=== PATIENT | male | born 1975 | race Caucasian/White ===

== ENCOUNTER 2020-08-25 21:52 | Observation (INO) ==
--- OUTSIDE RECORDS SUMMARY | 2020-08-25 21:55 | External Medical Summary | Continuity of Care Document ---
:1975 Author Name Blu To, Provider Address Unavailable Unavailable , Care Team Providers Name Role Phone Unavailable Unavailable Unavailable PCP, UNKNOWN Unavailable Unavailable Problems Active medical history not documented Allergies and Adverse Reactions Allergy history not documented Medications Medications not documented Procedures Procedures not documented Immunizations Immunizations not documented Plan of Treatment Planned Observations Planned Goals not documented Results No Known Results Results not documented
[2020-08-25] MEDS ORDERED: LORazepam 2 MG/4 ML VIAL IV STA (22:00)
[2020-08-25] MEDS ORDERED: SODIUM CHLORIDE 0.9% 1000ML 1,000 ML IV ONE (22:00)
[2020-08-25 22:34] LABS: Basophils # (auto) 0.06 K/uL (0-0.2); Basophils % (auto) 0.5 %; Eosinophils # (auto) 0.02 K/uL (0-0.5); Eosinophils % (auto) 0.2 %; Hematocrit (blood only) 54.9 % (42-52); Hemoglobin 19.4 g/dL (14.0-18.0); Immature Granulocytes # (auto) 0.03 K/uL (0.00-0.02); Immature Granulocytes % (auto) 0.3 %; Lymphocytes # (auto) 1.82 K/uL (1.2-3.4); Lymphocytes % (auto) 15.8 %; Mean Corpuscular Hemoglobin 36.1 pg (25-34); Mean Corpuscular Hgb Conc 35.3 g/dL (32-36); Monocytes # (auto) 0.89 K/uL (0.11-0.59); Monocytes % (auto) 7.7 %; Neutrophils # (auto) 8.67 K/uL (1.4-6.5); Neutrophils % (auto) 75.5 %; Platelet Count 358 K/uL (130-400); RDW Standard Deviation 52.5 fL (36.4-46.3); Red Blood Count 5.38 M/uL (4.7-6.1); White Blood Count 11.49 K/uL (4.8-10.8)
[2020-08-25 22:55] LABS: Alanine Aminotransferase 48 U/L (12-78); Albumin Level 2.9 gm/dl (3.4-5.0); Aspartate Aminotransferase 31 U/L (15-37); BUN Creatinine Ratio 2.4 (10-20); Bilirubin Direct < 0.1 mg/dl (0-0.2); Blood Urea Nitrogen 3 mg/dl (7-18); Calcium 8.7 mg/dl (8.5-10.1); Carbon Dioxide 24 mmol/L (21-32); Chloride 105 mmol/L (98-107); Creatinine Clr Calc Pharmacy 92.9 ml/min; Est GFR (African American) 98.7; Est GFR (Non-African American) 85.2; Glucose 119 mg/dl (70-99); Lipase 96 U/L (73-393); Magnesium 2.3 mg/dl (1.8-2.4); Potassium 3.5 mmol/L (3.5-5.1); Sodium 141 mmol/L (136-145)
[2020-08-25 22:58] LABS: Alkaline Phosphatase 135 U/L (45-117); Bilirubin,Total < 0.1 mg/dl (0.2-1); Total Protein 8.2 gm/dl (6.4-8.2)
[2020-08-25 23:11] LABS: Troponin I < 0.015 ng/ml (0-0.045)
--- NOTE | 2020-08-26 01:41 | CT Scan Report ---
CT head/brain wo con CLINICAL HISTORY: 44 years-old Male with ams. Acutely altered mental status TECHNIQUE: Multiple axial CT images of the head were obtained without contrast. A dose lowering tech nique was utilized adhering to the principles of ALARA. COMPARISON: CT cervical spine of same day. FINDINGS: No acute intracranial hemorrhage, midline shift, intracranial mass, hydrocephalus, territorial ischem ia or abnormal extra-axial collection. The calvarium is intact. Mild polypoid mucosal thickening of the maxillary sinuses. Angulation of th e nasal bones suggests remote fracture deformities. Mastoid air cells are clear. Soft tissues and orb its are unremarkable. IMPRESSION: No acute intracranial abnormality. ACT 112: Negative or not required by law. The above report was generated using voice recognition software. It may contain grammatical, syntax o r spelling errors. Electronically signed by: Marty Rodriguez M.D. 08/26/2020 1:39 AM
--- NOTE | 2020-08-26 01:48 | CT Scan Report ---
CT cervical spine wo con CT DOSE: 1025.18 mGy.cm CLINICAL HISTORY: 44 years-old Male with ams. Acute confusion with head and neck injury. COMPARISON: CT head of same day TECHNIQUE: Multiple axial CT images of the cervical spine were obtained without contrast. A dose low ering technique was utilized adhering to the principles of ALARA. FINDINGS: There is mild multilevel facet arthrosis and spondylitic spurring with severe degeneration at C1-C2. No acute fracture or subluxation. No prevertebral edema. Mastoid air cells and middle ear cavities ar e clear. No pneumothorax. Calcified plaque of the carotid bulbs. There is thickening of the visualize d maxillary sinuses, right greater than left. Secretions are noted within the airway. IMPRESSION: No acute fracture or subluxation. ACT 112: Negative or not required by law. The above report was generated using voice recognition software. It may contain grammatical, syntax o r spelling errors. Electronically signed by: Marty Rodriguez M.D. 08/26/2020 1:47 AM
--- NOTE | 2020-08-26 02:31 | Emergency Department Note ---
History of Present Illness General Chief complaint: Alcohol Intoxication Stated complaint: ALCOHOL INTOXICATION Time Seen by Provider: 08/25/20 21:57 Source: police History of Present Illness Provider complaint: Alcohol intoxication Onset (ago): day(s) 1 44-year-old male presents to the emergency department for alcohol intoxication. 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 manager of case reports that they received a call to go out to the patient's house to make sure he is okay for concerns of suicide. When they arrived the patient refused to let the police into his residence. Police were eventually able to gain access to the patient's residence and found him to be severely intoxicated. They state that he was covered in his own filth. Patient reports he has been drinking a half a gallon of alcohol a day. He currently denies any plans to want to hurt himself. Home Medications Home Medications Medication Instructions Recorded Confirmed Type No Known Home Medications 08/25/20 08/25/20 History Allergies Allergy/AdvReac Type Severity Reaction Status Date / Time Penicillins Allergy Severe rash, Verified 08/25/20 23:36 throat swelling Past Med/Surg History Medical History (Updated 08/26/20 @ 02:32 by Dieudonne Gipson) Amputation of left foot Gangrene No pertinent family history Social History (Updated 08/26/20 @ 02:28 by Dieudonne Gipson) Smoking Status: Current every day smoker Tobacco Type: Cigarettes Hx Alcohol Use: Yes Alcohol type: hard liquor Alcohol type Comment: Half a gallon a day Preferred Language: Sudanese Feels Safe at Home: Yes Review of Systems A total of 10 systems reviewed and were otherwise negative Physical Exam Vital Signs Vital Signs - 24 hr 08/25/20 21:59 08/25/20 22:10 08/25/20 22:49 Temperature 36.7 C Temperature Source Oral Pulse Rate 108 H 127 H 116 H Pulse Rate [Bilateral Apical] Pulse Rate from SpO2 Sensor 108 H 116 H Pulse Rhythm Regular Pulse Strength Normal Respiratory Rate 18 20 20 Respiratory Effort / Characteristics Non-Labored Spontaneous Respiratory Depth Normal Respiratory Pattern Regular Blood Pressure 133/90 133/90 144/95 H Blood Pressure [Right Arm] Blood Pressure Mean 115 104 100 Blood Pressure Mean [Right Arm] Blood Pressure Position Lying Pulse Oximetry 95 93 100 Oxygen Delivery Method Room Air Room Air Room Air Sepsis Recent Fever Within 48 Hours No Sepsis New/Unexplained Change in Mental Status No Sepsis Action Taken by Nursing No Action Required 08/25/20 23:00 08/25/20 23:30 08/26/20 00:00 Temperature Temperature Source Pulse Rate 112 H 108 H 109 H Pulse Rate [Bilateral Apical] Pulse Rate from SpO2 Sensor 114 H 108 H 113 H Pulse Rhythm Pulse Strength Respiratory Rate 21 18 21 Respiratory Effort / Characteristics Respiratory Depth Respiratory Pattern Blood Pressure 133/92 137/88 119/73 Blood Pressure [Right Arm] Blood Pressure Mean 95 112 85 Blood Pressure Mean [Right Arm] Blood Pressure Position Pulse Oximetry 100 100 99 Oxygen Delivery Method Room Air Room Air Room Air Sepsis Recent Fever Within 48 Hours Sepsis New/Unexplained Change in Mental Status Sepsis Action Taken by Nursing 08/26/20 02:19 Temperature Temperature Source Pulse Rate Pulse Rate [Bilateral Apical] 99 H Pulse Rate from SpO2 Sensor Pulse Rhythm Pulse Strength Respiratory Rate 20 Respiratory Effort / Characteristics Non-Labored Respiratory Depth Normal Respiratory Pattern Blood Pressure Blood Pressure [Right Arm] 143/88 H Blood Pressure Mean Blood Pressure Mean [Right Arm] 106 Blood Pressure Position Pulse Oximetry 93 Oxygen Delivery Method Room Air Sepsis Recent Fever Within 48 Hours Sepsis New/Unexplained Change in Mental Status Sepsis Action Taken by Nursing Physical Exam GENERAL: Patient is covered in his own filth. Patient appears jittery EYES: Conjunctivae and EOM are normal. Pupils are equal, round, and reactive to light. Right eye exhibits no discharge. Left eye exhibits no discharge. No sc leral icterus. NECK: Normal range of motion. Neck supple. No JVD present. No spinous process tenderness present. No carotid bruit present. No rigidity. No tracheal deviation and normal range of motion present. No Brudzinski's sign and no Kernig's sign noted. CV: Tachycardic rate, regular rhythm, normal heart sounds and intact distal pulses. There is no peripheral edema. Palpable radial pulses bue. PULM/CHEST: Effort normal and breath sounds normal. No respiratory distress. No stridor. He has no wheezes. He has no rales. - Chest Wall: He exhibits no tenderness. ABD: The abdomen is soft. Bowel sounds are normal. He has no distension. No mass is present. There is no tenderness. There is no rebound, no guarding, no Glover's sign and no tenderness at McBurney's point. Rovsig negative. NEURO: He is alert motor and sensation grossly intact. Patient appears jittery.. SKIN: Psoriasis plaques over the anterior chest wall. Course Course 2156: The patient was evaluated in room B6. A complete history and physical exam was performed. It was concerned that the patient could be going through DTs, patient was given Ativan 2 mg IV. 0228: Vital signs stable. Patient's alcohol is 358.9. On reassessment, the patient is sleeping comfortably at the bedside. He is needed no more Ativan in the emergency department. Patient will be evaluated by ER psych manager of case to see if the patient is truly having any thoughts of suicidal ideation and if any inpatient treatment is necessary. Case will be signed out to Dr. Connelly Administered Medications Discontinued Medications Sodium Chloride (Nss 1000ml) 1,000 mls @ 999 mls/hr IV .Q1H1M ONE Stop: 08/25/20 23:00 Last Infusion: 08/25/20 22:59 Dose: 0 mls/hr Documented by: [id number] Admin: 08/25/20 22:07 Dose: 999 mls/hr Documented by: [id number] Lorazepam (Ativan) 2 mg in 4 mls @ 4 mls/min IV NOW STA Stop: 08/25/20 22:01 Last Admin: 08/25/20 22:08 Dose: 4 mls/min Documented by: [id number] Medical Decision Making Laboratory Data Result diagrams: 08/25/20 22:11 08/25/20 22:11 Lab Results 08/25/20 08/25/20 08/25/20 Range/Units 22:11 22:11 22:11 WBC 11.49 H (4.8-10.8) K/uL RBC 5.38 (4.7-6.1) M/uL Hgb 19.4 H (14.0-18.0) g/dL Hct 54.9 H (42-52) % MCV 102.0 H (80-100) fL MCH 36.1 H (25-34) pg MCHC 35.3 (32-36) g/dL RDW Std Deviation 52.5 H (36.4-46.3) fL RDW Coeff of Karen 14.0 (11.5-14.5) % Plt Count 358 (130-400) K/uL MPV 9.0 (7.4-10.4) fL Immature Gran % (Auto) 0.3 % Neut % (Auto) 75.5 % Lymph % (Auto) 15.8 % [place] % (Auto) 7.7 % Eos % (Auto) 0.2 % Baso % (Auto) 0.5 % Neut # (Auto) 8.67 H (1.4-6.5) K/uL Lymph # (Auto) 1.82 (1.2-3.4) K/uL [place] # (Auto) 0.89 H (0.11-0.59) K/uL Eos # (Auto) 0.02 (0-0.5) K/uL Baso # (Auto) 0.06 (0-0.2) K/uL Immature Gran # (Auto) 0.03 H (0.00-0.02) K/uL Sodium 141 (136-145) mmol/L Potassium 3.5 (3.5-5.1) mmol/L Chloride 105 (98-107) mmol/L Carbon Dioxide 24 (21-32) mmol/L Anion Gap 12.0 H (3-11) BUN 3 L (7-18) mg/dl Creatinine 1.07 (0.6-1.4) mg/dl Est Cr Clr Drug Dosing 92.9 ml/min Est GFR ( Amer) 98.7 Est GFR (Non-Af Amer) 85.2 BUN/Creatinine Ratio 2.4 L (10-20) Glucose 119 H (70-99) mg/dl Calcium 8.7 (8.5-10.1) mg/dl Magnesium 2.3 (1.8-2.4) mg/dl Total Bilirubin < 0.1 L (0.2-1) mg/dl Direct Bilirubin < 0.1 (0-0.2) mg/dl AST 31 (15-37) U/L ALT 48 (12-78) U/L Alkaline Phosphatase 135 H (45-117) U/L Troponin I < 0.015 (0-0.045) ng/ml Total Protein 8.2 (6.4-8.2) gm/dl Albumin 2.9 L (3.4-5.0) gm/dl Lipase 96 (73-393) U/L Ethyl Alcohol mg/dL 358.9 H (0-3) mg/dl Imaging Data My Impression: Chest x-ray: No new changes from chest x-ray in 2018. Old right-sided clavicular fracture. Radiologist's Impression: CT head/brain wo con CLINICAL HISTORY: 44 years-old Male with ams. Acutely altered mental status TECHNIQUE: Multiple axial CT images of the head were obtained without contrast. A dose lowering technique was utilized adhering to the principles of ALARA. COMPARISON: CT cervical spine of same day. FINDINGS: No acute intracranial hemorrhage, midline shift, intracranial mass, hydrocephalus, territorial ischemia or abnormal extra-axial collection. The calvarium is intact. Mild polypoid mucosal thickening of the maxillary sinuses. Angulation of the nasal bones suggests remote fracture deformities. Mastoid air cells are clear. Soft tissues and orbits are unremarkable. IMPRESSION: No acute intracranial abnormality. ACT 112: Negative or not required by law. The above report was generated using voice recognition software. It may contain grammatical, syntax or spelling errors. Electronically signed by: Marty Rodriguez M.D. 08/26/2020 1:39 AM Dictated: 08/26/20136 Transcribed: 08/26/20136 CT cervical spine wo con CT DOSE: 1025.18 mGy.cm CLINICAL HISTORY: 44 years-old Male with ams. Acute confusion with head and neck injury. COMPARISON: CT head of same day TECHNIQUE: Multiple axial CT images of the cervical spine were obtained without contrast. A dose lowering technique was utilized adhering to the principles of ALARA. FINDINGS: There is mild multilevel facet arthrosis and spondylitic spurring with severe degeneration at C1-C2. No acute fracture or subluxation. No prevertebral edema. Mastoid air cells and middle ear cavities are clear. No pneumothorax. Calcified plaque of the carotid bulbs. There is thickening of the visualized maxillary sinuses, right greater than left. Secretions are noted within the airway. IMPRESSION: No acute fracture or subluxation. ACT 112: Negative or not required by law. The above report was generated using voice recognition software. It may contain grammatical, syntax or spelling errors. Electronically signed by: Marty Rodriguez M.D. 08/26/2020 1:47 AM Dictated: 08/26/20138 Transcribed: 08/26/20138 [facility] Narrative 2157: The patient was evaluated in room B6. A complete history and physical exam was performed. It was concerned that the patient could be going through DTs, patient was given Ativan 2 mg IV. 0228: Vital signs stable. Patient's alcohol is 358.9. On reassessment, the patient is sleeping comfortably at the bedside. He is needed no more Ativan in the emergency department. Patient will be evaluated by ER psych manager of case to see if the patient is truly having any thoughts of suicidal ideation and if any inpatient treatment is necessary. Case will be signed out to Dr. Connelly Impression & Plan Alcoholic intoxication Discharge Plan Visit Data Chief Complaint: Alcohol Intoxication Stated Complaint: ALCOHOL INTOXICATION ED Provider: Alayna Connelly Discharge Problem: Alcoholic intoxication Patient Disposition: Still a Patient Forms Stand Alone Forms: [email or web address] Prescriptions Prescriptions: No Action No Known Home Medications RF: 0 Referrals Referrals: PCP,NO [Primary Care Provider] - Discharge Problem: Alcoholic intoxication Qualifiers: Complication of substance-induced condition: with unspecified complication Qualified Code(s): F10.929 - Alcohol use, unspecified with intoxication, unspecified
--- NOTE | 2020-08-26 02:43 | Emergency Department Note ---
ED Visit Note This case was signed out to me at change of shift awaiting sobriety. The ED psychiatric rehabilitation case coordinator will evaluate the patient once he is more sober and awake. 0315:The patient was evaluated by the ED psychiatric rehabilitation case coordinator and was experiencing significant withdrawal symptoms. He was tremulous and tachycardic. 0400: I discussed the case with [facility] hospitalist and they will evaluate the patient for further management. . : Alcoholic intoxication Qualifiers: Complication of substance-induced condition: with unspecified complication Qualified Code(s): F10.929 - Alcohol use, unspecified with intoxication, unspecified
[2020-08-26 02:49] LABS: Amphetamines+Metham, Urine Neg (Neg); Barbiturates, Urine Neg (Neg); Benzodiazepine, Urine Neg (Neg); Cocaine, Urine Neg (Neg); MDMA (Ecstacy), Urine Neg (Neg); Methadone, Urine Neg (Neg); Opiate, Urine Neg (Neg); Phencyclidine, Urine Neg (Neg)
[2020-08-26] MEDS ORDERED: LORazepam 1 MG/2 ML VIAL IV STA (03:16)
[2020-08-26] MEDS ORDERED: MULTI-VITAMIN INFUSION 10 ML, THIAMINE HCL 100 MG, FOLIC ACID 1 MG in SODIUM CHLORIDE 0... IV STA (04:21)
[2020-08-26] MEDS ORDERED: diazePAM 5 MG TABLET PO STA (04:22)
--- NOTE | 2020-08-26 04:28 | History & Physical Report ---
Date of Service August 26, 2020 Assessment & Plan (1) Alcoholic intoxication: 44yo male with history of EtOH abuse, withdrawal with seizures presenting with EtOH withdrawal. Tachycardic and tremulous -Admit to PCU -Valium 20mg po in ER, may repeat PO dosing of valium later if needed. Patient reports drinking appx 15 drinks/day and is acutely withdrawing with an EtOH of 358.9 with last drink prior to arrival. Expect large benzo requirement -Banana bag to be given in ER -AWSS with IV Ativan -Thiamine and Folate daily Leukocytosis with hemoconcentration - suspect dehydration ?Suicidal ideation as mentioned in ER note - patient denies suicidal or homicidal thoughts or plans. -Psychiatry consultation Patient has multiple warrants out for his arrest Present on Admission?: Yes (2) Fungal rash of torso: Patient with rash on torso, appears fungal -Nystatin F/E/N - Banana bag in ER followed by LR at 125mL/hr x 2 liters, monitor electrolytes and replete as needed, NPO except chips/sips Code - Full Dispo - Admit to PCU Present on Admission?: Yes History of Present Illness Chief Complaint: EtOH withdrawal Primary Care Provider: NO PCP Francisco Nazario is a 44yo C male with history of EtOH abuse presenting with EtOH withdrawal. Patient is unable to provide details of events prior to arrival. History obtained through chart review and discussion with ER team. Apparently, police were requested by a friend of the patient to perform a well check as they were concerned that the patient had suicidal intent. When police entered the home the patient was found to be severely intoxicated and unkempt. He has history of EtOH abuse - approximately 15 drinks/day of hard liquor. Last drink was prior to arrival. He has history of withdrawals and seizures. Complaining of shakes as well as nausea and diarrhea. No additional complaints ER Course: Ativan 3mg IV, NSS Allergies Allergy/AdvReac Type Severity Reaction Status Date / Time Penicillins Allergy Severe rash, Verified 08/25/20 23:36 throat swelling Home Medications Home Medications Medication Instructions Recorded Confirmed Type No Known Home Medications 08/25/20 08/25/20 History Past Med/Surg History Medical History (Updated 08/26/20 @ 04:39 by Sandhya Mark DO) Gangrene No pertinent family history Surgical History (Updated 08/26/20 @ 04:25 by Sandhya Mark DO) Amputation of left foot Social History (Updated 08/26/20 @ 02:28 by Dieudonne Gipson) Smoking Status: Current every day smoker Tobacco Type: Cigarettes Hx Alcohol Use: Yes Alcohol type: hard liquor Alcohol type Comment: Half a gallon a day Preferred Language: Togolese Feels Safe at Home: Yes Review of Systems Review of Systems: All systems reviewed & are unremarkable except as noted in HPI & below and Unobtainable due to cognitive status Physical Exam Physical Exam: General: patient visibly intoxicated, tremulous, awake and oriented x 3, answering questions Skin: +flaking rash on left chest wall HEENT: NC/AT, PERRL, EOMI, anicteric sclera, conjunctiva without injection, external ear normal to inspection and nontender, nares patent, moist mucus membranes, dentition intact, no oropharyngeal lesions, neck supple, trachea midline, no LAD, no thyromegaly, no JVD Heart: +S1/S2, regular, no m/r/g Lungs: equal air entry bilaterally, no rales/rhonchi/wheezes Abd: +BS, soft, NT/ND, no masses/organomegaly/ascites Ext: warm, 2+ pulses in UE/LE bilaterally, no clubbing/cyanosis or edema Neuro: nonfocal, patient AA&O x 4, speech intact, no facial droop, moving all extremities on command with equal strength 5/5 Results & Data Results & Data ([facility]) Vital Signs (Past 12 Hours) Vital Signs Temp Pulse Pulse Resp BP BP Pulse Ox 08/26/20 03:33 103 H 22 142/91 H 94 08/26/20 03:30 118 H 16 96 08/26/20 03:00 147 H 21 130/86 94 08/26/20 02:30 99 H 17 120/76 94 08/26/20 02:19 99 H 20 143/88 H 93 08/26/20 02:18 99 H 22 143/88 H 94 08/26/20 02:01 105 H 19 08/26/20 02:00 110 H 19 97/66 L 08/26/20 01:44 109 H 18 100/66 08/26/20 01:31 105 H 19 08/26/20 01:30 103 H 19 100/66 08/26/20 01:01 130 H 25 H 100 08/26/20 01:00 96 H 16 133/84 100 08/26/20 00:31 104 H 15 97 08/26/20 00:30 104 H 15 113/68 85 L 08/26/20 00:00 109 H 21 119/73 99 08/25/20 23:30 108 H 18 137/88 100 08/25/20 23:00 112 H 21 133/92 100 08/25/20 22:49 116 H 20 144/95 H 100 08/25/20 22:10 36.7 C 127 H 20 133/90 93 08/25/20 21:59 108 H 18 133/90 95 Laboratory Results Lab Results 08/25/20 08/25/20 08/25/20 Range/Units 22:11 22:11 22:11 WBC 11.49 H (4.8-10.8) K/uL RBC 5.38 (4.7-6.1) M/uL Hgb 19.4 H (14.0-18.0) g/dL Hct 54.9 H (42-52) % MCV 102.0 H (80-100) fL MCH 36.1 H (25-34) pg MCHC 35.3 (32-36) g/dL RDW Std Deviation 52.5 H (36.4-46.3) fL RDW Coeff of Karen 14.0 (11.5-14.5) % Plt Count 358 (130-400) K/uL MPV 9.0 (7.4-10.4) fL Immature Gran % (Auto) 0.3 % Neut % (Auto) 75.5 % Lymph % (Auto) 15.8 % Barton % (Auto) 7.7 % Eos % (Auto) 0.2 % Baso % (Auto) 0.5 % Neut # (Auto) 8.67 H (1.4-6.5) K/uL Lymph # (Auto) 1.82 (1.2-3.4) K/uL Barton # (Auto) 0.89 H (0.11-0.59) K/uL Eos # (Auto) 0.02 (0-0.5) K/uL Baso # (Auto) 0.06 (0-0.2) K/uL Immature Gran # (Auto) 0.03 H (0.00-0.02) K/uL Sodium 141 (136-145) mmol/L Potassium 3.5 (3.5-5.1) mmol/L Chloride 105 (98-107) mmol/L Carbon Dioxide 24 (21-32) mmol/L Anion Gap 12.0 H (3-11) BUN 3 L (7-18) mg/dl Creatinine 1.07 (0.6-1.4) mg/dl Est Cr Clr Drug Dosing 92.9 ml/min Est GFR ( Amer) 98.7 Est GFR (Non-Af Amer) 85.2 BUN/Creatinine Ratio 2.4 L (10-20) Glucose 119 H (70-99) mg/dl Calcium 8.7 (8.5-10.1) mg/dl Magnesium 2.3 (1.8-2.4) mg/dl Total Bilirubin < 0.1 L (0.2-1) mg/dl Direct Bilirubin < 0.1 (0-0.2) mg/dl AST 31 (15-37) U/L ALT 48 (12-78) U/L Alkaline Phosphatase 135 H (45-117) U/L Troponin I < 0.015 (0-0.045) ng/ml Total Protein 8.2 (6.4-8.2) gm/dl Albumin 2.9 L (3.4-5.0) gm/dl Lipase 96 (73-393) U/L Urine Opiates Screen (Neg) Ur Methadone, Qual (Neg) Urine Barbiturates (Neg) Ur Phencyclidine (PCP) (Neg) U Amphetamin/Meth Scrn (Neg) MDMA (Ecstasy) Screen (Neg) U Benzodiazepines Scrn (Neg) Ur Cocaine Metabolite (Neg) U Marijuana (THC) Screen (Neg) Ethyl Alcohol mg/dL 358.9 H (0-3) mg/dl 08/26/20 Range/Units 02:20 WBC (4.8-10.8) K/uL RBC (4.7-6.1) M/uL Hgb (14.0-18.0) g/dL Hct (42-52) % MCV (80-100) fL MCH (25-34) pg MCHC (32-36) g/dL RDW Std Deviation (36.4-46.3) fL RDW Coeff of Karen (11.5-14.5) % Plt Count (130-400) K/uL MPV (7.4-10.4) fL Immature Gran % (Auto) % Neut % (Auto) % Lymph % (Auto) % Barton % (Auto) % Eos % (Auto) % Baso % (Auto) % Neut # (Auto) (1.4-6.5) K/uL Lymph # (Auto) (1.2-3.4) K/uL Barton # (Auto) (0.11-0.59) K/uL Eos # (Auto) (0-0.5) K/uL Baso # (Auto) (0-0.2) K/uL Immature Gran # (Auto) (0.00-0.02) K/uL Sodium (136-145) mmol/L Potassium (3.5-5.1) mmol/L Chloride (98-107) mmol/L Carbon Dioxide (21-32) mmol/L Anion Gap (3-11) BUN (7-18) mg/dl Creatinine (0.6-1.4) mg/dl Est Cr Clr Drug Dosing ml/min Est GFR ( Amer) Est GFR (Non-Af Amer) BUN/Creatinine Ratio (10-20) Glucose (70-99) mg/dl Calcium (8.5-10.1) mg/dl Magnesium (1.8-2.4) mg/dl Total Bilirubin (0.2-1) mg/dl Direct Bilirubin (0-0.2) mg/dl AST (15-37) U/L ALT (12-78) U/L Alkaline Phosphatase (45-117) U/L Troponin I (0-0.045) ng/ml Total Protein (6.4-8.2) gm/dl Albumin (3.4-5.0) gm/dl Lipase (73-393) U/L Urine Opiates Screen Neg (Neg) Ur Methadone, Qual Neg (Neg) Urine Barbiturates Neg (Neg) Ur Phencyclidine (PCP) Neg (Neg) U Amphetamin/Meth Scrn Neg (Neg) MDMA (Ecstasy) Screen Neg (Neg) U Benzodiazepines Scrn Neg (Neg) Ur Cocaine Metabolite Neg (Neg) U Marijuana (THC) Screen Neg (Neg) Ethyl Alcohol mg/dL (0-3) mg/dl Diagnostic Findings CT head/brain wo con CLINICAL HISTORY: 44 years-old Male with ams. Acutely altered mental status TECHNIQUE: Multiple axial CT images of the head were obtained without contrast. A dose lowering technique was utilized adhering to the principles of ALARA. COMPARISON: CT cervical spine of same day. FINDINGS: No acute intracranial hemorrhage, midline shift, intracranial mass, hydrocephalus, territorial ischemia or abnormal extra-axial collection. The calvarium is intact. Mild polypoid mucosal thickening of the maxillary sinuses. Angulation of the nasal bones suggests remote fracture deformities. Mastoid air cells are clear. Soft tissues and orbits are unremarkable. IMPRESSION: No acute intracranial abnormality. ACT 112: Negative or not required by law. The above report was generated using voice recognition software. It may contain grammatical, syntax or spelling errors. Electronically signed by: Marty Rodriguez M.D. 08/26/2020 1:39 AM Dictated: 08/26/20 0137 Transcribed: 08/26/[address] cervical spine wo con CT DOSE: 1025.18 mGy.cm CLINICAL HISTORY: 44 years-old Male with ams. Acute confusion with head and neck injury. COMPARISON: CT head of same day TECHNIQUE: Multiple axial CT images of the cervical spine were obtained without contrast. A dose lowering technique was utilized adhering to the principles of ALARA. FINDINGS: There is mild multilevel facet arthrosis and spondylitic spurring with severe degeneration at C1-C2. No acute fracture or subluxation. No prevertebral edema. Mastoid air cells and middle ear cavities are clear. No pneumothorax. Calcified plaque of the carotid bulbs. There is thickening of the visualized maxillary sinuses, right greater than left. Secretions are noted within the airway. IMPRESSION: No acute fracture or subluxation. ACT 112: Negative or not required by law. The above report was generated using voice recognition software. It may contain grammatical, syntax or spelling errors. Electronically signed by: Marty Rodriguez M.D. 08/26/2020 1:47 AM Dictated: 08/26/20138 Transcribed: 08/26/20138 ECG Additional Comments: ST at 116, UY=672, QrS=82, KEz=224, no STEMI PG Care Time/CCT Total # of Minutes Spent Total Time Spent with Patient: Total time spent is greater than 50% in coordination of care (as documented) at patient's floor/unit and/or counseling patient: Coding Level of Care Code 96122 Initial Inpt Care Lvl 2 Diagnoses Alcoholic intoxication F10.929 Complication of substance-induced condition: with unspecified complication Fungal rash of torso B36.9 (1) Alcoholic intoxication Complication of substance-induced condition: with unspecified complication Qualified Code(s): F10.929 - Alcohol use, unspecified with intoxication, unspecified
[2020-08-26] MEDS ORDERED: ATIVAN IV ALCOHOL WITHDRAWL IV PRN (05:17)
[2020-08-26] MEDS ORDERED: LORazepam 3 MG/6 ML VIAL IV PRN (05:17)
[2020-08-26] MEDS ORDERED: KETOROLAC TROMETHAMINE 15 MG/ML VIAL IV PRN (06:25)
[2020-08-26] MEDS: ACETAMINOPHEN 325 MG TAB PO PRN ×2 (06:43→17:54)
[2020-08-26] MEDS: LACTATED RINGER'S 1,000 ML IV SCH ×2 (07:20→17:21)
[2020-08-26] MEDS: LORazepam 1 MG/2 ML VIAL IV PRN ×4 (07:25→18:59)
--- NOTE | 2020-08-26 07:58 | XRay Report ---
XR chest 1V portable HISTORY: Altered mental status. COMPARISON: Chest 04/25/2018. FINDINGS: No pneumothorax. No pleural effusions. The heart remains mildly enlarged. There is mild int erstitial thickening which is likely chronic. This remains unchanged. No new focal lung consolidation s to suggest pneumonia. No evidence for pulmonary edema. Old, healed right clavicle fracture is again noted. IMPRESSION: No significant change compared to the prior study. No acute process. ACT 112: Negative or not required by law. Electronically signed by: Mandeep Polanco M.D. 08/26/2020 7:56 AM
[2020-08-26] MEDS: LORazepam 2 MG/4 ML VIAL IV PRN ×3 (08:30→15:54)
[2020-08-26] MEDS: FOLIC ACID 1 MG in SYRINGE 9.8 ML IV SCH (08:31)
[2020-08-26] MEDS: THIAMINE HCL 100 MG in SYRINGE 9 ML IV SCH (08:31)
[2020-08-26] MEDS: NYSTATIN OINT 15 GM TUBE EXT SCH ×2 (08:31→21:09)
--- NOTE | 2020-08-26 11:41 | Psychiatric Consultation ---
Date of Consultation August 26, 2020 Impression / Recommendations Impression Dr. Kari Salas was directly involved in review and discussion of the patient's case and participated in medical decision making regarding treatment recommendations. RECOMMENDATIONS: 08/26 - Psychiatric consultation was requested by hospitalist service to evaluate patient for reported "vague suicidal statements" made, while led to police involvement. It is reported, and confirmed with diagnostic work-up, that the patient was intoxicated while making these statements and there is no identified reports of specific comments verbalized. - Pt denies history of any psychiatric treatment. He denies previous psychiatric evaluation or history of working with an outpatient therapist. He does endorse history of inpatient D&A rehab 20 years ago. Pt has never been prescribed psychotropic medications per his reports. - Pt is currently denying SI/HI. He reports he does not recall making any concerning statements, and denies knowledge of tendency toward suicidal ideation when intoxicated. He denies SI when sober. Pt was unable to identify any safety concerns specifically related to his mental health. Base on this, there is no present criteria for inpatient psychiatric treatment - especially for involuntary commitment. - Pt is unwilling at this time to sign an LORI for our service to speak with his sister to gather collateral information. Certainly, any information that could be obtained from the patient's sister regarding specific statements made or history of psychiatric/safety concerns would be helpful. Even with this collateral information there is insufficient criteria for inpatient psychiatric admission, as patient is denying SI presently and when generally sober, was intoxicated, had no act of furtherance, denies history of suicide attempt, or any acute mood/anxiety symptoms. - Pt was certainly encouraged to consider substance abuse treatment, especially as his self-reported goal is to "stay away from the stuff." Pt declined offer for outpatient D&A counseling, IOP referrals, or inpatient D&A rehab. He was encouraged to inform staff if he should change his mind. Risk Factors Assessment Do You Have Access To A Gun?: No Psych History Identifying Data 44-year-old male admitted medically on 08/25/2020 after presenting to the ED via police while intoxicated. BAL on admission was 358.9. Pt is being treated medically to assist with concern for alcohol withdrawal. Psychiatric consultation was requested as there are reports that patient made "vague suicidal statements" to his sister while intoxicated, which triggered the phone call to police. Chief Complaint "I had one too many drinks." History of Present Illness Francisco Nazario is a 44-year-old male admitted medically on 08/25/2020 after presenting to the ED via police for alcohol intoxication. It is reported that the patient had been speaking with his sister on the phone, and sister called police to complete well-visit after patient had made "vague suicidal statements." It is unclear the exact statements that were made. Pt did deny SI upon presentation to the ED. BAL on presentation was 358.9. Pt was admitted for alcohol withdrawal concerns and psychiatric consultation was requested by hospitalist team to evaluate patient for possible suicidality. Pt was cooperative with psychiatric assessment, though does appear uncomfortable and responses were rather brief. Pt admits that he does not recall many of the events leading up to his presentation. Pt states "I had one too many drinks." Pt does recall speaking to his sister, but does not remember making any concerning statements. Pt states that he does not have a tendency toward suicidality when intoxicated and denies SI or other safety concerns when sober. Pt denies any history of psychiatric treatment in the past. He has not been prescribed medication for mood or anxiety according to his report. Pt does admit to inpatient D&A rehab ~20 years ago, but otherwise also denies any formal substance abuse treatment. Although patient is unwilling to sign a release to allow for coordination with his sister, he does not provide any information suggesting acute risk of suicide. Pt was offered outpatient D&A treatment or inpatient rehab referrals, which he is declining at this time. Pt does express desire to "stay away from the stuff", but feels he will be able to do this independently once he is discharged. He was at least encouraged to call some identified supports during his admission to request their assistance in achieving this goal. Pt denied other needs from our service, but was encouraged to inform staff should he desire any substance abuse treatment referrals. Past Psychiatric History Current Psychiatric Diagnosis: Alcohol abuse disorder Outpatient Services: None Previous Psych Admissions: None Do You Have Access To A Gun?: No History of Previous Suicide Attempt: No Past Medication Trials: Denied Allergies Allergy/AdvReac Type Severity Reaction Status Date / Time Penicillins Allergy Severe rash, Verified 08/25/20 23:36 throat swelling Home Medications Home Medications Medication Instructions Recorded Confirmed Type No Known Home Medications 08/25/20 08/25/20 History Family History Denies known family history of mental health conditions. Substance Abuse History Pt admits to consuming alcohol heavily since the age of 20. He reports recently consuming as much as an 18 pack of beer and 1/2 gallon of whiskey over the past four days. Pt admits to episodes of sobriety in the past, the longest one being 6 months several months ago. Pt went to rehab once, [facility] ~20 years ago. Personal History Living Arrangements: Home Highest Grade Completed: G.E.D. 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 It is reported that police are to be updated as patient is nearing medical clearance. Psychological Trauma History Comment: Denied Patient History Medical History Gangrene No pertinent family history Surgical History Amputation of left foot Social History Smoking Status: Current every day smoker Tobacco Type: Cigarettes Cigarettes Per Day: 30; Hx Alcohol Use: Yes Alcohol type: beer Alcohol type Comment: Half a gallon a day Hx Substance Use: No Preferred Language: Mauritian Communication Ability: Effective Repair Servicer Required: No Beliefs That Will Affect Care: None Current Living Situation: Other Current Living Situation Comment: Lives with an Elderly lady Feels Safe at Home: Yes Assistive Devices: None Physical Exam Psychiatric: Orientation: alert, oriented x 3 and + guarded (superficially cooperative ) Pt was not uncooperative and did not seem to be withholding information. It did seem that patient was simply unable to recall any information related to his presentation, likely due to alcohol intoxication. Apperance: appropriately dressed and + disheveled; + inappropriately groomed Eye Contact: + fair eye contact Motor Behavior: + tremor Speech: normal rate/rhythm/volume of speech (somewhat brief responses to questions) Affect: + blunted affect (subdued, but not overtly depressed) Mood: no depressed mood and no anxious mood Thought Process: goal directed thought process and + concrete thought process Thought Content: reality based without delusions; no hopelessness and no worthlessness Suicidal Thoughts: denies suicidal thoughts, denies suicidal plan and denies suicidal intent Homicidal Thoughts: denies homicidal thoughts Hallucinations: no auditory hallucinations and no visual hallucinations Cognition: remote memory grossly intact, attention grossly intact and language grossly intact; + recent memory not intact (could not recall many events leading to his admission) Estimated Intelligence: consistent with education level Insight: + fair insight Judgement: + fair judgement Vital Signs (Past 24 Hours): Last Vital Signs Temp 36.9 C 08/26/20 05:27 Pulse 84 08/26/20 08:00 Resp 17 08/26/20 05:27 BP 142/85 H 08/26/20 05:27 Pulse Ox 95 08/26/20 05:27 Review of Systems Constitutional: reports fatigue Cardiovascular: denied Respiratory: denied Gastrointestinal: reports mild nausea Neurological: reports tremor Psychiatric: denies symptoms other than stated above Total of at least 10 systems reviewed, pertinent positives as above and in HPI. Results & Data (PSY) Medications Administered Acetaminophen (Acetaminophen 325 Mg Tab) 650 mg PO Q6H PRN PRN Reason: As Needed for Fever or Pain Stop: 09/25/20 06:24 Last Admin: 08/26/20 06:43 Dose: 650 mg Documented by: [id number] Folic Acid 1 mg/ Syringe 10 mls @ 5 mls/min IV QAM [facility] Stop: 09/25/20 08:59 Last Admin: 08/26/20 08:31 Dose: 5 mls/min Documented by: [id number] Thiamine HCl 100 mg/ Syringe 10 mls @ 2 mls[facility] [place] Stop: 09/25/20 08:59 Last Admin: 08/26/20 08:31 Dose: 2 mls/min Documented by: [id number] Lorazepam (Ativan) 1 mg in 2 mls @ 2 mls/min IV UD PRN; Protocol PRN Reason: EtOH Withdrawl AWSS Score 6,7 Stop: 09/25/20 05:16 Last Admin: 08/26/20 10:56 Dose: 2 mls/min Documented by: [id number] Admin: 08/26/20 07:25 Dose: 2 mls/min Documented by: [id number] Lorazepam (Ativan) 2 mg in 4 mls @ 4 mls/min IV UD PRN; Protocol PRN Reason: EtOH Withdrawl AWSS Score 8,9 Stop: 09/25/20 05:16 Last Admin: 08/26/20 08:30 Dose: 4 mls/min Documented by: [id number] Lactated Ringer's (Lr) 1,000 mls @ 125 mls/hr IV .Q8H [facility] Stop: 08/26/20 22:44 Last Admin: 08/26/20 07:20 Dose: 125 mls/hr Documented by: [id number] Nystatin (Nystatin Oint 15 Gm Tube) 1 appln EXT BID [facility] Stop: 09/25/20 08:59 Last Admin: 08/26/20 08:31 Dose: 1 appln Documented by: [id number] Coding Level of Care Code 47005 [facility] Intl Hosp Care Lvl 2
[2020-08-26] MEDS ORDERED: GABAPENTIN 1200MG ALCOHOL WITHDRAWAL LOAD PO ONE (12:36)
[2020-08-26] MEDS ORDERED: GABAPENTIN 600 MG TAB PO ONE (12:45)
--- NOTE | 2020-08-26 15:51 | History & Physical Bridge Note ---
Date of Service August 26, 2020 History & Physical Bridge Note I have examined the patient, reviewed the History & Physical and in the interval since the performance of the History & Physical I have noted the following changes of clinical significance: patient requiring Ativan every several hours poor appetite has some tremors, but BP and HR are stable, no seizure activity he says he wants to quit but refuses referrals to rehab, says he wants to do it himself will add Gabapentin taper to help with withdrawal symptoms
[2020-08-26] MEDS: GABAPENTIN 600 MG TAB PO SCH (17:55)
[2020-08-27] MEDS: GABAPENTIN 600 MG TAB PO SCH ×3 (00:34→16:05)
[2020-08-27] MEDS: LORazepam 2 MG/4 ML VIAL IV PRN ×6 (04:33→23:05)
--- NOTE | 2020-08-27 05:51 | Electrocardiogram Report ---
Test Reason : Blood Pressure : / mmHG Vent. Rate : 116 BPM Atrial Rate : 116 BPM P-R Int : 122 ms QRS Dur : 082 ms QT Int : 326 ms P-R-T Axes : 059 -39 029 degrees QTc Int : 453 ms Sinus tachycardia Left axis deviation Low voltage QRS Inferior infarct , age undetermined Anterior infarct Abnormal ECG When compared with ECG of 26-APR-2018 09:25, Anterior infarct is now Present Inferior infarct is now Present Confirmed by Joshua Cheung ([id number]) on 08/27/2020 5:50:49 AM Referred By: REFERRED SELF Confirmed By:Joshua Cheung
[2020-08-27 06:21] LABS: Basophils # (auto) 0.04 K/uL (0-0.2); Basophils % (auto) 0.5 %; Eosinophils % (auto) 1.2 %; Hematocrit (blood only) 48.5 % (42-52); Hemoglobin 16.6 g/dL (14.0-18.0); Immature Granulocytes # (auto) 0.03 K/uL (0.00-0.02); Immature Granulocytes % (auto) 0.4 %; Lymphocytes # (auto) 0.93 K/uL (1.2-3.4); Lymphocytes % (auto) 10.9 %; Mean Corpuscular Hemoglobin 35.5 pg (25-34); Mean Corpuscular Hgb Conc 34.2 g/dL (32-36); Mean Corpuscular Volume 103.6 fL (80-100); Monocytes # (auto) 0.61 K/uL (0.11-0.59); Monocytes % (auto) 7.1 %; Neutrophils # (auto) 6.86 K/uL (1.4-6.5); Neutrophils % (auto) 79.9 %; Platelet Count 233 K/uL (130-400); RDW Coefficient of Variation 13.4 % (11.5-14.5); RDW Standard Deviation 51.2 fL (36.4-46.3); Red Blood Count 4.68 M/uL (4.7-6.1); White Blood Count 8.57 K/uL (4.8-10.8)
[2020-08-27 06:59] LABS: Albumin Level 2.6 gm/dl (3.4-5.0); BUN Creatinine Ratio 5.1 (10-20); Bilirubin Direct 0.1 mg/dl (0-0.2); Bilirubin,Total 0.6 mg/dl (0.2-1); Calcium 8.4 mg/dl (8.5-10.1); Creatinine Clr Calc Pharmacy 109.2 ml/min; Est GFR (African American) 120.1; Est GFR (Non-African American) 103.6; Potassium 4.2 mmol/L (3.5-5.1)
[2020-08-27] MEDS: THIAMINE HCL 100 MG in SYRINGE 9 ML IV SCH (10:07)
[2020-08-27] MEDS: NYSTATIN OINT 15 GM TUBE EXT SCH ×2 (10:07→19:58)
[2020-08-27] MEDS: FOLIC ACID 1 MG in SYRINGE 9.8 ML IV SCH (10:07)
[2020-08-27] MEDS ORDERED: traMADol HCL 50 MG TABLET PO ONE (11:34)
[2020-08-27] MEDS ORDERED: KETOROLAC 30 MG/ML VIAL IV ONE (12:20)
[2020-08-27] MEDS ORDERED: MoRPHine SULFATE 2 MG/ML CARP IV PRN (12:39)
--- NOTE | 2020-08-27 18:52 | Hospitalist Progress Note ---
Date of Service August 27, 2020 Assessment & Plan (1) Alcoholic intoxication: 44yo male with history of EtOH abuse, history of withdrawal with seizures presenting with EtOH withdrawal. Tachycardic and tremulous alcohol level down to <3 today he has tremors, some tachycardia, hypertensive at times he is acting agitated and paranoid about home situation using Gabapentin taper as well as Ativan PO to help with withdrawal symptoms no seizure episodes AST and ALT mildly elevated due to alcohol abuse recently Patient has multiple warrants out for his arrest once he is medically stable for discharge will contact [employer] repeat labs in the AM he is refusing to wear tele monitor, can downgrade to medical floor (2) Fungal rash of torso: Patient with rash on torso, appears fungal -Nystatin topically F/E/N - Banana bag in ER followed by LR at 125mL/hr x 2 liters, monitor electrolytes and replete as needed, NPO except chips/sips Code - Full Dispo - Admit to PCU (3) Suicidal ideation: questionable suicidal thoughts he denies this he did not give psychiatry permission to call his sister to discuss the situation no 302 is warranted according to psychiatry he refuses counseling services or help with alcohol abuse and rehab Admission and Anticipated Discharge Date Admission Date: August 26, 2020 Subjective patient awake and walking around the room, walking into the hallway he says he is feeling better, he just wants to go home discussed with him that he is still tachycardic, still has tremors he is refusing any type of rehab or information on substance abuse, he says he can quit on his own I advised against that I explained that if he would go home today it would be AMA and that I was concerned he would resume drinking or have a seizure checked labs, AST and ALT still elevated updated his mother over the phone spoke with clinical coordinator, there is still a warrant out for his arrest when he is medically ready for discharge we will contact the [employer] Review of Systems Review of Systems: All systems reviewed & are unremarkable except as noted in Subjective Musculoskeletal: + joint pain (right wrist pain from IV site) Psychiatric: + anxiety and + paranoia Physical Exam Constitutional: well developed, + thin and + disheveled; no acute distress and + not healthy appearing Neck: trachea midline, no thyromegaly Respiratory: normal respiratory effort, lungs clear to auscultation Cardiovascular: RRR, no murmur, no edema Gastrointestinal (Abdomen): normal bowel sounds, soft, nontender, no hepatosplenomegaly Musculoskeletal: no cyanosis or clubbing, extremities motor strength 5/5 Skin: no rashes, warm and dry Neurologic: CN's II-XI intact bilaterally, deep tendon reflexes 2+ bilaterally and awake; no focal motor deficits Motor/Sensory: + tremor Psychiatric: Orientation: alert and oriented x 3 Affect: + anxious affect Thought Content: + paranoid (says he has $200k at his home, worried he will be robbed) Lymphatic: no cervical or axillary lymphadenopathy Results & Data Results & Data ([facility]) Vital Signs (Past 12 Hours) Vital Signs Temp Pulse Resp BP Pulse Ox 08/27/20 18:38 36.7 C 110 H 18 143/93 H 100 08/27/20 15:00 36.7 C 90 18 160/99 H 99 08/27/20 11:00 36.7 C 78 18 156/106 H 100 08/27/20 07:52 36.9 C 106 H 18 146/94 H 99 Laboratory Results Laboratory Results - last 24 hr 08/27/20 08/27/20 08/27/20 06:06 06:06 06:06 WBC 8.57 RBC 4.68 L Hgb 16.6 Hct 48.5 MCV 103.6 H MCH 35.5 H MCHC 34.2 RDW Std Deviation 51.2 H RDW Coeff of Karen 13.4 Plt Count 233 MPV 9.0 Immature Gran % (Auto) 0.4 Neut % (Auto) 79.9 Lymph % (Auto) 10.9 [place] % (Auto) 7.1 Eos % (Auto) 1.2 Baso % (Auto) 0.5 Neut # (Auto) 6.86 H Lymph # (Auto) 0.93 L [place] # (Auto) 0.61 H Eos # (Auto) 0.10 Baso # (Auto) 0.04 Immature Gran # (Auto) 0.03 H Sodium 135 L Potassium 4.2 D Chloride 102 Carbon Dioxide 31 Anion Gap 2.0 L BUN 5 L Creatinine 0.91 Est Cr Clr Drug Dosing 109.2 Est GFR ( Amer) 120.1 Est GFR (Non-Af Amer) 103.6 BUN/Creatinine Ratio 5.1 L Glucose 119 H Calcium 8.4 L Total Bilirubin 0.6 D Direct Bilirubin 0.1 AST 154 H ALT 169 H Alkaline Phosphatase 152 H Total Protein 7.0 Albumin 2.6 L Ethyl Alcohol mg/dL < 3.0 Medications Administered Current Inpatient Medications Acetaminophen (Acetaminophen 325 Mg Tab) 650 mg PO Q6H PRN PRN Reason: As Needed for Fever or Pain Stop: 09/25/20 06:24 Last Admin: 08/26/20 17:54 Dose: 650 mg Documented by: Gabapentin (Gabapentin 600 Mg Tab) 600 mg PO Q8H [facility] Stop: 08/28/20 00:01 Last Admin: 08/27/20 16:05 Dose: 600 mg Documented by: Gabapentin (Gabapentin 600 Mg Tab) 600 mg PO Q12H [facility] Stop: 08/29/20 00:01 Gabapentin (Gabapentin 600 Mg Tab) 600 mg PO Q24H [facility] Stop: 08/30/20 00:01 Folic Acid 1 mg/ Syringe 10 mls @ 5 mls/min IV QAM [facility] Stop: 09/25/20 08:59 Last Admin: 08/27/20 10:07 Dose: 5 mls/min Documented by: Thiamine HCl 100 mg/ Syringe 10 mls @ 2 mls/min IV QAM [facility] Stop: 09/25/20 08:59 Last Admin: 08/27/20 10:07 Dose: 2 mls/min Documented by: Lorazepam (Ativan) 1 mg in 2 mls @ 2 mls/min IV UD PRN; Protocol PRN Reason: EtOH Withdrawl AWSS Score 6,7 Stop: 09/25/20 05:16 Last Admin: 08/26/20 18:59 Dose: 2 mls/min Documented by: Lorazepam (Ativan) 2 mg in 4 mls @ 4 mls/min IV UD PRN; Protocol PRN Reason: EtOH Withdrawl AWSS Score 8,9 Stop: 09/25/20 05:16 Last Admin: 08/27/20 13:29 Dose: 4 mls/min Documented by: Lorazepam (Ativan) 3 mg in 6 mls @ 4 mls/min IV ONCE PRN; Protocol PRN Reason: EtOH Withdrawl AWSS Score >=10 Stop: 09/25/20 05:16 Last Admin: 08/27/20 15:19 Dose: 4 mls/min Documented by: Ketorolac Tromethamine (Ketorolac Tromethamine 15 Mg/Ml Vial) 15 mg IV Q6H PRN PRN Reason: Pain Stop: 08/31/20 06:24 Morphine Sulfate (Morphine Sulfate 2 Mg/Ml Carp) 2 mg IV Q4H PRN PRN Reason: Pain Stop: 09/10/20 12:38 Last Admin: 08/27/20 13:24 Dose: 2 mg Documented by: Nystatin (Nystatin Oint 15 Gm Tube) 1 appln EXT BID [facility] Stop: 09/25/20 08:59 Last Admin: 08/27/20 10:07 Dose: Not Given Documented by: PG Care Time/CCT Total # of Minutes Spent Total Time Spent with Patient: Total time spent is greater than 50% in coordination of care (as documented) at patient's floor/unit and/or counseling patient: Coding Level of Care Code 32514 Subseq Hosp Care Lvl 2 Diagnoses Alcoholic intoxication F10.929 Complication of substance-induced condition: with unspecified complication Fungal rash of torso B36.9 Suicidal ideation R45.851 (1) Alcoholic intoxication Complication of substance-induced condition: with unspecified complication Qualified Code(s): F10.929 - Alcohol use, unspecified with intoxication, unspecified
[2020-08-27] MEDS: LORazepam 1 MG/2 ML VIAL IV PRN (20:12)
[2020-08-28] MEDS: GABAPENTIN 600 MG TAB PO SCH (02:17)
[2020-08-28] MEDS: LORazepam 1 MG/2 ML VIAL IV PRN ×2 (02:26→12:07)
[2020-08-28] MEDS: NYSTATIN OINT 15 GM TUBE EXT SCH (07:53)
[2020-08-28] MEDS: FOLIC ACID 1 MG in SYRINGE 9.8 ML IV SCH (07:55)
[2020-08-28] MEDS: THIAMINE HCL 100 MG in SYRINGE 9 ML IV SCH (07:55)
[2020-08-28] MEDS: LORazepam 2 MG/4 ML VIAL IV PRN (08:02)
[2020-08-28] MEDS ORDERED: THIAMINE HCL 100 MG TAB PO SCH (09:00)
[2020-08-28] MEDS ORDERED: FOLIC ACID 1 MG TAB PO SCH (09:00)
[2020-08-28] MEDS ORDERED: GABAPENTIN 600 MG TAB PO SCH (12:00)
[2020-08-28] MEDS ORDERED: NICOTINE 7 MG/24 HR TDSY TD SCH (12:45)
--- NOTE | 2020-08-28 23:06 | Discharge Summary ---
Date of Service August 28, 2020 Admission HPI Per Admitting Provider Francisco Nazario is a 44yo C male with history of EtOH abuse presenting with EtOH withdrawal. Patient is unable to provide details of events prior to arrival. History obtained through chart review and discussion with ER team. Apparently, police were requested by a friend of the patient to perform a well check as they were concerned that the patient had suicidal intent. When police entered the home the patient was found to be severely intoxicated and unkempt. He has history of EtOH abuse - approximately 15 drinks/day of hard liquor. Last drink was prior to arrival. He has history of withdrawals and seizures. Complaining of shakes as well as nausea and diarrhea. No additional complaints ER Course: Ativan 3mg IV, NSS Principal Diagnosis Alcohol abuse with acute withdrawal Discharge Exam Constitutional well developed, + thin and + disheveled; no acute distress and + not healthy appearing Neck trachea midline, no thyromegaly Respiratory normal respiratory effort, lungs clear to auscultation Cardiovascular RRR, no murmur, no edema Gastrointestinal (Abdomen) normal bowel sounds, soft, nontender, no hepatosplenomegaly Musculoskeletal no cyanosis or clubbing, extremities motor strength 5/5 Skin no rashes, warm and dry Neurologic CN's II-XI intact bilaterally, deep tendon reflexes 2+ bilaterally and awake; no focal motor deficits Psychiatric Orientation: alert and oriented x 3 Affect: + anxious affect Thought Content: + paranoid (says he has $200k at his home, worried he will be robbed) Lymphatic no cervical or axillary lymphadenopathy Discharge Data Allergies Allergy/AdvReac Type Severity Reaction Status Date / Time Penicillins Allergy Severe rash, Verified 08/25/20 23:36 throat swelling Consultations 08/26/20 03:21 ED Decision to Admit Stat 08/26/20 05:17 Consult Psychiatry Routine Ordered Studies 08/25/20 22:01 CT cervical spine wo con Urgent CT head/brain wo con Urgent Hospital Course (1) Alcoholic intoxication: 44yo male with history of EtOH abuse, history of withdrawal with seizures presenting with EtOH withdrawal. Tachycardic and tremulous alcohol level down to <3 08/27 he had tremors, some tachycardia, hypertensive at times but better today he is acting agitated and paranoid about home situation using Gabapentin taper as well as Ativan PO to help with withdrawal symptoms no seizure episodes AST and ALT mildly elevated due to alcohol abuse recently Patient has multiple warrants out for his arrest contacted [employer] Police today, they took him into custody immediately after discharge for discharge, prescribed him gabapentin 600mg twice a day x 2 days then 600mg daily x 2 days Ativan 1mg twice a day for 5 days to take the edge off of alcohol withdrawal physical scripts sent with the patient so that he can receive these medications while in custody folic acid and thiamine daily prescribed (2) Fungal rash of torso: Patient with rash on torso, appears fungal -Nystatin topically, script given for the nystatin (3) Suicidal ideation: questionable suicidal thoughts he denies this he did not give psychiatry permission to call his sister to discuss the situation no 302 is warranted according to psychiatry he refuses counseling services or help with alcohol abuse and rehab Total Time Total Time Spent Total Time Spent (In Minutes): 31 minutes Total Time Includes: Examination of the Patient, Discharge Planning and Medication Reconciliation Discharge Plan Discharge Items Patient Disposition: Home - Self-Care Reason For Visit: ALCOHOL WITHDRAWAL Discharge Diagnosis: Alcohol abuse Alcohol withdrawal Condition on Discharge: Good Goals: complete Gabapentin taper Activity: Resume your previous activity Weightbearing: Full weightbearing Non-emergency contact: Primary Care Provider Call non-emergency contact if: you have any medication questions Follow-up/Referrals: PCP,NO [Primary Care Provider] - Diet: Regular Addtl Attending Provider Instructions: Patient is three days out from alcohol intake GABAPENTIN: take for four more days, take 600mg twice a day for two days then 600mg daily for two days, this helps with alcohol withdrawal ATIVAN: take 1mg twice a day for 5 days to help limit withdrawal symptoms NYSTATIN: apply twice a day for 7 days to treat rash NICOTINE PATCH: apply once a day take FOLIC ACID and THIAMINE daily for nutritional supplementation Pending Studies at Discharge: No Stand-Alone Forms: My [facility], Smoking Cessation Medications and DC Order Prescriptions: New nicotine 7 mg/24 hr Patch 24 Hour 7 mg transdermal QAM Qty: 7 RF: 0 gabapentin 600 mg Tablet 600 mg PO UD 4 Days Qty: 6 RF: 0 nystatin 100,000 unit/gram Ointment 1 applic EXT BID 7 Days Qty: 30 RF: 0 thiamine HCl (vitamin B1) [Vitamin B-1] 100 mg Tablet 100 mg PO QAM 30 Days Qty: 30 RF: 0 folic acid 1 mg Tablet 1 mg PO QAM 30 Days Qty: 30 RF: 0 lorazepam [Ativan] 1 mg tablet 1 mg PO BID Qty: 10 RF: 0 No Action No Known Home Medications RF: 0 Discharge Orders: Discharge Order (Routine); Ordered 08/28/20 Ordered By: Serafin Olguin Admission Data Admit Date/Time: 08/26/20 04:18 Attending Provider: Serafin Olguin Admit Provider: Sandhya Mark Primary Care Provider: PCP,MICHEAL Other Providers: Sandhya Mark ; Kari Salas Other Interventions: Discharge Summary Assessment (RN) Last Done: 08/28/20 12:53 Coding Level of Care Code D/C Day Management >30 mins Diagnoses Alcoholic intoxication F10.929 Complication of substance-induced condition: with unspecified complication Fungal rash of torso B36.9 Suicidal ideation R45.851
[2020-08-30] MEDS ORDERED: GABAPENTIN 600 MG TAB PO SCH
== END 2020-08-28 13:09 | disposition home or self-care (01) ==
LOC: ED 21:52 → INTOOBSV 08-26 04:18 → SUATTDRO 08-26 04:18 → 1E 08-26 04:18 → 2E 08-26 19:00 → 2W 08-27 18:35